=== PATIENT | female | born 1970 | race Caucasian/White ===

== ENCOUNTER 2021-05-04 13:26 | Emergency (ER) | payer OTHER, SELFPAY ==
--- NOTE | 2021-05-04 13:28 | XRR_ITS ---
PROCEDURE INFORMATION: Exam: XR Chest Exam date and time: 05/04/2021 1:28 PM Age: 50 years old Clinical indication: Pain; Chest pressure; Additional info: Chestr pain TECHNIQUE: Imaging protocol: XR of the chest. Views: 1 view. COMPARISON: No relevant prior studies available. FINDINGS: Lungs: Unremarkable. No consolidation. Pleural spaces: Unremarkable. No pleural effusion. No pneumothorax. Heart/Mediastinum: Unremarkable. No cardiomegaly. Bones/joints: Unremarkable. XR/XR chest 1V portable [id number] IMPRESSION: No acute findings.
[2021-05-04 13:35] VITALS: BP 139/84; PULSE 84; RESP 20; TEMP 36.3; O2SAT 97; BMI 30.7
--- NOTE | 2021-05-04 15:43 | W.ED.URI ---
HPI - URI/Sore Throat General: Chief Complaint: General Medical Stated Complaint: CHEST CONGESTION, BRONCHITIS TREATMENT X 2 Time Seen by Provider: 05/04/21 15:34 Source: patient Mode of arrival: ambulatory Limitations: no limitations History of Present Illness: HPI Narrative: Patient is a 50-year-old female presents to ED today with a complaint of productive cough and nasal pain/congestion x 2-3 weeks. Patient states she has a diagnosis of chronic bronchitis through her primary care provider. Patient states she takes a Breo inhaler, ipratropium nasal spray, montelukast, and hydroxyzine but these medications do not seem to be helping. No fevers. No sick contacts. Denies chest pain or shortness of breath. MD elicited complaint: cough, nasal congestion and sinus pain Onset (ago): day(s) Consistency: constant Severity: moderate Description of mucous: clear Able to tolerate fluids by mouth: Yes Exacerbating factors: nothing Relieving factors: nothing Associated symptoms: Reports nasal congestion and sinus pain; Deny abdominal pain, chills, chest pain, diarrhea, epistaxis, ear or mastoid pain, fever(s), headache(s), nausea or vomiting Review of Systems Const: Denies: fever(s), chills, body aches, fatigue or malaise Eyes: Denies: change in vision or blurry vision ENMT: Reports: nasal congestion, post nasal drip and sinus pain; Denies: throat pain, odynophagia, ear or mastoid pain, ear discharge or epistaxis Card: Denies: chest pain, palpitations, irregular heart rhythm, edema, swelling of feet/ankles, lightheadedness, syncope, pre-syncope, dyspnea on exertion or orthopnea Resp: Reports: productive cough and chest congestion; Denies: dyspnea, wheezing, pain on inspiration or hemoptysis GI: Denies: abdominal pain, nausea, vomiting or diarrhea Musc: Denies: neck pain or back pain Skin/Breast: Denies: rash Neuro: Denies: headache(s) [facility] ED Female Reproductive History: Date of last menstrual period: 04/25/21 Physical Exam Const: COMMON NORMALS: no acute distress, average body habitus, patient oriented x3, no limitations, healthy appearing, alert and well nourished HENMT: COMMON NORMALS: normocephalic and atraumatic HEAD & SCALP: normal to inspection, normocephalic and atraumatic FACE & SINUS: sinus tenderness THROAT: posterior oropharynx normal Neck/C-Spine: COMMON NORMALS: full ROM and no lymphadenopathy Resp: COMMON NORMALS: normal respiratory effort and clear to auscultation bilaterally AUSCULTATION: clear to auscultation bilaterally Cardio: COMMON NORMALS: regular rate and regular rhythm RATE: regular rate RHYTHM: regular rhythm Extremity: COMMON NORMALS: no clubbing, cyanosis or edema, no calf tenderness and no pedal edema Neuro: COMMON NORMALS: patient oriented x3 SENSORIUM/ORIENTATION: Yes alert Course Vital Signs: Vital signs: Vital Signs Temperature 97.3 F L 05/04/21 13:35 Pulse Rate 84 05/04/21 13:35 Respiratory Rate 20 H 05/04/21 13:35 Blood Pressure 139/84 05/04/21 13:35 Pulse Oximetry 97 05/04/21 13:35 MDM - URI/Sore Throat Imaging Data^: CXR: Radiologist's impression: [address] [address] XRay Report Signed Patient: Cynthia Terrazas Unit #: [id number] : 1970 Age/Sex: 50 / F ADM Date: 05/04/21 Loc: ER Room/Bed: Attending Dr: Ordering Provider/Ordering MD: Villa Schwartz MD Date of Service: 05/04/21 Procedure(s): XR chest 1V portable [id number] Accession Number(s): [id number] Report Number: [id number] PROCEDURE INFORMATION: Exam: XR Chest Exam date and time: 05/04/2021 1:28 PM Age: 50 years old Clinical indication: Pain; Chest pressure; Additional info: Chestr pain TECHNIQUE: Imaging protocol: XR of the chest. Views: 1 view. COMPARISON: No relevant prior studies available. FINDINGS: Lungs: Unremarkable. No consolidation. Pleural spaces: Unremarkable. No pleural effusion. No pneumothorax. Heart/Mediastinum: Unremarkable. No cardiomegaly. Bones/joints: Unremarkable. XR/XR chest 1V portable [id number] IMPRESSION: No acute findings. Dictated By: Jose Law DO Signed By: Jose Law DO Signed Date/Time: 05/04/21 1527 DD/ 1328 Discharge Plan Discharge Patient Disposition: Home Clinical Impression: COPD with acute exacerbation Condition: Stable Prescriptions: New prednisone 10 mg tablet 10 mg PO DAILY 10 Days Qty: 41 RF: 0 levofloxacin 750 mg tablet 750 mg PO DAILY 7 Days Qty: 7 RF: 0 Discharge Orders: Discharge ED (Routine); Ordered 05/04/21 Ordered By: Tete Montemayor Referrals: Zack Barry [Primary Care Provider] - Coding Level of Care Code ED Branch Library Clerk for [facility] Abraham
== END 2021-05-04 16:00 | disposition home or self-care (01) ==
PROVIDERS: Emergency Provider Physician Assistant; PCP Family Medicine
DX: J44.1 Chronic obstructive pulmonary disease with (acute) exacerbation (principal)
CPT/HCPCS: 71045; 99282

== ENCOUNTER 2022-05-01 23:48 | Emergency (ER) | payer OTHER, SELFPAY ==
[2022-05-01 23:52] VITALS: BP 125/77; PULSE 104; RESP 15; TEMP 36.6; O2SAT 97
--- NOTE | 2022-05-02 00:14 | ED_ITS ---
HPI - Wound/Laceration General: Chief Complaint: Wound/Laceration Stated Complaint: abcess, pain Time Seen by Provider: 05/01/22 23:54 Source: patient Mode of arrival: ambulatory Limitations: no limitations History of Present Illness: 51-year-old female states she has had pain to her perineum since she states it is much worse when she sat she states she noticed tonight she had some swelling and is concerned she has an abscess she has had some slight drainage from the area she denies any fever denies any vomiting or diarrhea Associated symptoms: Denies chills, fever(s), nausea or vomiting Review of Systems Const: Denies: fever(s), chills, body aches or change in appetite Eyes: Denies: blurry vision or eye discomfort ENMT: Denies: throat pain or dental pain Card: Denies: chest pain Resp: Denies: dyspnea GI: Denies: abdominal pain, nausea, vomiting or diarrhea : Denies: dysuria Musc: Denies: neck pain or back pain Skin/Breast: Reports: erythema; Denies: rash Neuro: Denies: headache(s) Psych: Denies: depression Wilbur/Lymph: Denies: easy bruising All/Imm: Denies: urticaria PFSH ED PFSH: Medical History No pertinent past medical history Social History (Updated 05/02/22 @ 00:15 by Saul Jones MD) Substance/Drug Use: never Female Reproductive History: Date of last menstrual period: 04/25/21 Physical Exam Const: COMMON NORMALS: no acute distress and patient oriented x3 HENMT: COMMON NORMALS: normocephalic and atraumatic HEAD & SCALP: normo cephalic and atraumatic Eye: COMMON NORMALS: conjunctivae normal CONJUNCTIVA: Yes conjunctivae normal Neck/C-Spine: COMMON NORMALS: full ROM Chest: COMMONS NORMALS: normal inspection of the chest Resp: COMMON NORMALS: normal respiratory effort Cardio: COMMON NORMALS: regular rate RATE: regular rate GI: INSPECTION: Yes normal to inspection : GENITAL IMAGES (FEMALE): 1. 2 cm abscess noted to right side of the perineum Extremity: COMMON NORMALS: normal to inspection Neuro: COMMON NORMALS: patient oriented x3 Psych: COMMON NORMALS: mental status grossly normal Skin: COMMON NORMALS: no jaundice Procedures Abscess I/D Site: deborah-rectal Side (if applicable): right Local Anesthetic: lidocaine 1% Amount of anesthesia used (mL): 8 Technique: incised with #11 blade Packing used?: iodoform Course Vital Signs: Vital signs: Vital Signs Temperature 97.8 F 05/01/22 23:52 Pulse Rate 104 H 05/01/22 23:52 Respiratory Rate 15 05/01/22 23:52 Blood Pressure 125/77 05/01/22 23:52 Pulse Oximetry 97 05/01/22 23:52 Oxygen Delivery Me thod 05/01/22 23:52 MDM - Wound/Laceration Medical Decision Making Patient presents here with an abscess to the right perineum I did incise and drain it had a moderate amount of fluid out did place a packing we will start her on antibiotics she is to remove the packing in 2 days return if worsening she understands agrees to plan. Discharge Plan Discharge Patient Disposition: Home Clinical Impression: Abscess Prescriptions: New hydrocodone-acetaminophen 5-325 mg tablet 1 tab PO Q6H PRN (Reason: pain) Qty: 14 0RF clindamycin HCl 300 mg capsule 300 mg PO Q8H 7 Days Qty: 21 0RF Discharge Orders: Discharge ED (Routine); Ordered 05/02/22 Ordered By: Saul Jones Referrals: Zack Barry [Primary Care Provider] - 4-7 days Discharge Diet: Advance as tolerated Discharge Activity: Resume usual activity Patient Instructions: Abscess (ED), Opioid Safety Activity Restrictions/Additional Instructions: remove pack in 2 days Coding Level of Care Code ED House Supervisor for Chg Fwd Exam Comprehensive
[2022-05-02] MEDS: HYDROcodone-acetaminophen 7.5-325 mg Tablet 1 TAB PO (00:28)
[2022-05-02] MEDS: clindamycin 150 mg Capsule 300 MG PO (01:08)
[2022-05-02] MEDS: lidocaine 1% INJ 20 mL MDV (mL) INJECTION (01:09)
[2022-05-02 01:15] VITALS: BP 121/76; PULSE 99; RESP 18; O2SAT 98
== END 2022-05-02 01:16 | disposition home or self-care (01) ==
PROVIDERS: Emergency Provider Emergency Medicine; PCP Family Medicine
DX: L02.215 Cutaneous abscess of perineum (principal)
CPT/HCPCS: 56405; 99283

== ENCOUNTER 2024-09-11 12:52 | Outpatient (CLI) | payer OTHER, SELFPAY ==
--- NOTE | 2024-09-11 13:02 | MM_ITS ---
WS: [id number] Bilateral screening 3D tomosynthesis digital mammogram, 09/11/2024 1:04 PM Clinical Data: SCREENING Comparison: 08/04/2023 Findings: No spiculated masses or clustered calcifications are seen. There are no secondary signs of carcinoma. MM/MM scr BI tomosynthesis [id number] Impression: Negative bilateral mammogram unchanged. Recommend annual screening mammograms. BIRADS: 1 - Negative. FOLLOW UP: 1 Year Follow-up DENSITY: There are scattered areas of fibroglandular density. The CAD packing checker was used
== END 2024-09-11 12:53 | disposition home or self-care (01) ==
PROVIDERS: PCP Family Medicine; Visit Provider Family Medicine
DX: Z12.31 Encounter for screening mammogram for malignant neoplasm of breast (principal); R92.323 Mammographic fibroglandular density, bilateral breasts
CPT/HCPCS: 77063; 77067

== ENCOUNTER 2024-09-15 10:39 | Outpatient (CLI) | payer OTHER, SELFPAY ==
--- NOTE | 2024-09-15 10:43 | USR_ITS ---
PROCEDURE INFORMATION: Exam: US Abdomen Complete Exam date and time: 09/15/2024 10:55 AM Age: 54 years old Clinical indication: Abdominal pain; Generalized; Additional info: Postprandial abdominal bloating/generalized abd pain TECHNIQUE: Imaging protocol: Real-time ultrasound of the abdomen with image documentation. Complete exam. COMPARISON: No relevant prior studies available. FINDINGS: Liver: The liver demonstrates mildly elevated parenchymal echogenicity, slightly coarsened echotexture, and attenuation of the sound beam. No focal hepatic lesion identified. Gallbladder: Normal. No gallstones. There is no gallbladder wall thickening. Biliary ducts: Normal. No stones. No dilation. Pancreas: Visualized pancreas is unremarkable. Right kidney: 1.2 x 0.9 x 0.9 cm hyperechoic nonshadowing cortical lesion in the right kidney. Left kidney: Normal. No mass. No hydronephrosis. Spleen: Mild splenomegaly with estimated volume of 338 cc. Aorta: Normal. No aneurysm. Inferior vena cava: Normal. US/US abdomen complete* [id number] IMPRESSION: 1. Probable hepatic steatosis. Correlate with liver function tests. 2. 1.2 x 0.9 x 0.9 cm hyperechoic nonshadowing cortical lesion in the right kidney. Leading differential consideration is an angiomyolipoma. Consider follow-up nonemergent MRI or CT renal protocol for further characterization. 3. No acute process.
== END 2024-09-15 10:40 | disposition home or self-care (01) ==
PROVIDERS: PCP Family Medicine; Visit Provider Family Medicine
DX: R14.0 Abdominal distension (gaseous) (principal); R10.84 Generalized abdominal pain; R93.2 Abnormal findings on diagnostic imaging of liver and biliary tract; N28.89 Other specified disorders of kidney and ureter; R16.1 Splenomegaly, not elsewhere classified
CPT/HCPCS: 76700

== ENCOUNTER 2024-10-26 12:52 | Outpatient (CLI) | payer SELFPAY ==
--- NOTE | 2024-10-26 12:57 | MR_ITS ---
WS: [id number] MRI LEFT SHOULDER NONCONTRAST TECHNIQUE: Sagittal T2, coronal T1, T2 and proton density imaging. Axial gradient PDE imaging. CLINICAL INFORMATION: CHRONIC LEFT SHOULDER PAIN COMPARISON: None. FINDINGS: Moderate degenerative arthritis AC joint with subacromial spurring. Slight impingement on the distal supraspinatus. Tiny undersurface tear distal supraspinatus with tendinopathy. Normal infraspinatus. Normal teres minor. Subscapularis tendon is normal. Normal biceps tendon in the bicipital groove. Normal intra-articular biceps tendon. Biceps labral anchor appears intact. MR/MR shoulder LT wo con* [id number] IMPRESSION: 1. Moderate arthritis AC joint with subacromial spurring. Slight impingement d istal supraspinatus. 2. Tendinopathy distal supraspinatus with a tiny undersurface tear. 3. Rotator cuff is otherwise normal. 4. Biceps tendon intact within the bicipital groove. 5. Normal intra-articular biceps tendon.
== END 2024-10-26 12:53 | disposition home or self-care (01) ==
LOC: RAD 12:54
PROVIDERS: PCP Family Medicine; Visit Provider Nurse Practitioner Family
DX: M13.812 Other specified arthritis, left shoulder (principal)
CPT/HCPCS: 73221

== ENCOUNTER 2025-01-16 08:43 | Outpatient (CLI) | payer OTHER, SELFPAY ==
--- NOTE | 2025-01-16 08:49 | MR_ITS ---
WS: [id number] MRI/MRCP OF THE ABDOMEN WITHOUT GADOLINIUM ENHANCEMENT TECHNIQUE: Coronal T2 Fase BH, Axial T2 Fase BH, Axial T2 FS BH, Zxial 3D Merida BH, Axial DWI BH, 2D MRCP Radial BH, 3D MRCP (Resp), and Axial 3D Dyn BH Post sequences. CLINICAL INFORMATION: RIGHT RENAL MASS COMPARISON: Ultrasound 09/15/2024 FINDINGS: No hydronephrosis in either kidney. Adrenal glands are normal. Tiny RIGHT renal cyst. Tiny lesion lateral RIGHT kidney which suppresses on the fat saturation imaging without enhancement likely corresponds to the suspected angiomyolipoma seen on the ultrasound. This is easier to visualize on ultrasound. Small RIGHT lower pole renal cyst measuring 10 mm. 1 or 2 tiny cyst in the LEFT kidney. Normal visualized pancreas. Normal caliber abdominal aorta. Fatty liver. MR/MR abdomen wo/w con* [id number] Impression: 1. No hydronephrosis in either kidney. 2. No suspicious renal abnormalities. 3. 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 This is easier to visualize on the ultrasound. 4. 10 mm RIGHT lower pole renal cyst. 5. No other suspicious findings.
[2025-01-16] MEDS: gadobenate dimeglumine 20 mL vial IV (09:44)
== END 2025-01-16 08:44 | disposition home or self-care (01) ==
PROVIDERS: PCP Family Medicine; Visit Provider Family Medicine
DX: N28.89 Other specified disorders of kidney and ureter (principal); N28.1 Cyst of kidney, acquired
CPT/HCPCS: 74183